=== PATIENT | female | born 1965 | race Caucasian/White ===

== ENCOUNTER 2024-01-14 08:59 | Outpatient (CLI) | payer OTHER, SELFPAY | END 2024-01-14 09:00 | disposition home or self-care (01) | PROVIDERS: PCP Internal Medicine; Visit Provider Internal Medicine | DX: E11.9 Type 2 diabetes mellitus without complications (principal); I10 Essential (primary) hypertension; Z13.220 Encounter for screening for lipoid disorders | CPT/HCPCS: 80053; 80061 ==

== ENCOUNTER 2024-01-21 12:50 | Outpatient (CLI) | payer OTHER, SELFPAY ==
[2024-01-21] MEDS: PERFLUTREN LIPID MICROSPHERES 2 ML VIAL IV (13:57)
[2024-01-21 13:58] VITALS: BP 154/82; PULSE 92; RESP 18
--- NOTE | 2024-01-21 14:43 | W.PM.STED ---
Stress Test Note Date Date Seen: 01/21/24 Date of test: 01/21/24 Providers Primary care provider: Kilo Provider Generic Stress test physician: Baldemar Vidales Stress Test Note Stress test ordered: Stress Echo Indication for test: Shortness of breath Stress test medicine: Definity Results discussion: Patient is a very nice 58-year-old female presents here for the above test after discussion the procedure, the risks benefits and side effects with it, informed consent is obtained from the patient, cardiac stress test medical history form is reviewed. Pretest EKG shows normal sinus rhythm, with a ventricular rate of 62, blood pressure 142/82. No acute ST wave changes are noted. Standard Ajay protocol is employed over a time course of 10 minutes, she achieved a metabolic equivalent of 11.5 Mets with a maximum rate of 166 was 119% of the maximum. Mild ST wave depression is noted laterally inferiorly, with 2.6 mm inferiorly, and he was 1.5 mm from V4 to V6. Is present subjectively she had no symptoms has chest pain shortness of breath there is some mild her pressures with leg fatigue, and good exercise tolerance is noted Impression: Positive electrographic changes above, negative subjective Follow up suggested: Await echo imaging, clinical correlation with this will be needed, patient exercised to a high level, this may be a false positive given the above findings, the again need correlation the echo portion. She left this test facility in good condition
== END 2024-01-21 14:03 | disposition home or self-care (01) ==
LOC: STRESS 12:53
PROVIDERS: Visit Provider Internal Medicine
DX: R06.02 Shortness of breath (principal)
CPT/HCPCS: 93016; 93325; 93351; Q9957

== ENCOUNTER 2025-01-26 08:06 | Outpatient (CLI) | payer OTHER, BC, SELFPAY | END 2025-01-26 08:07 | disposition home or self-care (01) | LOC: NFLDREF 01-28 14:22 | PROVIDERS: PCP Internal Medicine; Referring Provider Internal Medicine; Visit Provider Internal Medicine | DX: E11.9 Type 2 diabetes mellitus without complications (principal); I10 Essential (primary) hypertension | CPT/HCPCS: 80053; 80061; 82043; 82570 ==

== ENCOUNTER 2025-01-29 20:20 | Emergency (ER) | payer OTHER, BC, SELFPAY ==
[2025-01-29 20:22] VITALS: BP 168/65; PULSE 64; RESP 18; TEMP 36.2; O2SAT 99; BMI 26.3
--- OUTSIDE RECORDS SUMMARY | 2025-01-29 20:22 | XMS_ITS | Clinical Summary ---
Author Organization [facility] Address [address] [place] [id number] Care Team Providers Care Service Station Attendant Name Role Phone No Ref-Primary, Physician Primary Care Provider Allergies No known active allergies Medications ACYCLOVIR PO Take 400 mg by mouth 2 times daily Active vitamin D (ERGOCALCIFEROL ) 46396 UNIT capsule Take 50,000 Units by mouth Active estradiol (VIVELLE-DOT) 0.05 MG/24HR BIW patch Place 1 patch onto the skin twice a week Active FLUOXETINE HCL PO Take 20 mg by mouth At Bedtime Active hydrochlorothia zide (MICROZIDE) 12.5 MG capsule Take 25 mg by mouth every morning Active LISINOPRIL PO Take 10 mg by mouth daily Active METFORMIN HCL PO Take 500 mg by mouth daily (with dinner) Active Solifenacin Succinate (VESICARE PO) Take 5 mg by mouth daily Active Social History Tobacco Use Types Packs/Day Years Used Date Smoking Tobacco: Never Smokeless Tobacco: Never Alcohol Use Standard Drinks/Week Comments No 0 (1 standard drink = 0.6 oz pur e alcohol) Comments No Sex and Gender Information Value Date Recorded Sex Assigned at Not on file 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 Gender Identity Not on file Sexual Orientation Not on file Last Filed Vital Signs Vital Sign Reading Time Taken Comments Blood Pressure 125/85 10/11/2017 9:05 AM CDT Pulse - - Temperature 36.3 C (97.3 F) 10/11/2017 6:49 AM CDT Respiratory Rate 17 10/11/2017 9:05 AM CDT Oxygen Saturation 98% 10/11/2017 9:05 AM CDT Inhaled Oxygen Concentration - - Weight 70.3 kg (155 lb) 10/11/2017 6:49 AM CDT Height 153.7 cm (5' 0.5) 10/11/2017 6:49 AM CDT Body Mass Index 29.77 10/11/2017 6:49 AM CDT Plan of Treatment Not on file Insurance [employer] Care Teams Service Station Attendant Relationship Specialty Start Date End Date No Ref-Primary, Physician PCP - General 09/30/17
--- OUTSIDE RECORDS SUMMARY | 2025-01-29 20:22 | XMS_ITS | Clinical Summary ---
Author Organization [facility] Address [address] [place] [address] Care Team Providers Care Oven Heater Name Role Phone Genet Jarrell PA-C Primary Care Provide r Ruma Mccord MD Unavailable [phone] Allergies No known active allergies Medications lisinopril (PRINIVIL;ZESTRI L) 10 mg Oral Tab 1 Tab Once Daily. 03/09/2014 Active FLUoxetine (PROZAC) 20 mg Oral Cap 20 mg Once Daily. 05/11/2014 Active VITAMIN D2 50,000 unit Oral Cap 1 Cap as directed. Twice weekly 05/15/2014 Active solifenacin (VESICARE) 5 mg oral tablet Take 5 mg by mouth once daily. Active Active Problems Problem Noted Date Diagnosed Date LAN (obstructive sleep apnea) 06/16/2014 Overview (06/18/2014): AHI 16.2/RDI 18.2/REM AHI 15.6, desats 89% Benign essential hypertension Type 2 diabetes mellitus Obesity (BMI 30.0-34.9) Family History Medical History Relation Comments Sleep Apnea Neg Family Hx Social History Tobacco Use Types Packs/Day Years Used Date Smoking Tobacco: Never Smokeless Tobacco: Never Alcohol Use Standard Drinks/Week Comments No 0 (1 standard drink = 0.6 oz pur e alcohol) Comments No Sex and Gender Information Value Date Recorded Sex Assigned at Not on file Legal 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 Gender Identity Not on file Sexual Orientation Not on file 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 Not on file Not on file Not on file Last Filed Vital Signs Vital Sign Reading Time Taken Comments Blood Pressure 123/77 05/22/2017 8:40 AM CONTENT CREATION MANAGER Pulse 72 05/22/2017 8:40 AM CONTENT CREATION MANAGER Temperature 36.6 C (97.8 F) 05/22/2017 6:51 AM CONTENT CREATION MANAGER Respiratory Rate 18 05/22/2017 8:40 AM CONTENT CREATION MANAGER Oxygen Saturation 96% 05/22/2017 8:40 AM CONTENT CREATION MANAGER Inhaled Oxygen Concentration - - Weight 72.6 kg (160 lb) 05/22/2017 6:50 AM CONTENT CREATION MANAGER Height 154.9 cm (5' 1) 05/22/2017 6:50 AM CONTENT CREATION MANAGER Body Mass Index 30.23 05/22/2017 6:50 AM CONTENT CREATION MANAGER Plan of Treatment Health Maintenance Due Date Last Done Comments Creatinine 1966 Eye Exam 1966 Hepatitis C Screening 1966 HgbA1C 1966 Lipid Screening 1966 Mammogram Screening 1966 Microalbumin Q12 Month 1966 Pap Smear 1966 Anxiety Screening (DEUCE-2) 1967 Depression Assessment (PHQ-2) 1967 Pneumococcal 50+ Years (2 of 2 - PCV) 05/05/2011 05/05/2010, 03/16/2005 Zoster Vaccine (1 of 2) 02/06/2016 Yearly Review of HCD 04/30/2018 04/30/2017 Adult Tetanus Booster 04/08/2022 04/08/2012 , 08/31/2003 COVID-19 Vaccine ( - 2023-2 5 season) 2024 Influenza Vaccine (#1) 2025 Colonoscopy 05/22/2027 05/22/2017 RSV Vaccines (1 - 1-dose 75+ series) 2041 Meningococcal B Vaccine Aged Out No l onger eligible based on patient's age to complete this topic Procedures Procedure Name Priority Date/Time Associated Diagnosis Comments ASC COLONOSOPY Routine 05/22/2017 7:34 AM CONTENT CREATION MANAGER from Last 3 Months or Most Recently Relevant to Health Maintenance Results * ASC Colonoscopy (05/22/2017 7:34 AM CONTENT CREATION MANAGER) 05/22/2017 7:34 AM CONTENT CREATION MANAGER Narrative TEST - 05/22/2017 8:13 AM CONTENT CREATION MANAGER Patient Name: Krystina Harris Procedure Date: 05/22/2017 7:34 AM Attending MD: KORY DEL CID MD Procedure: Colonoscopy Indications: Screening for colorectal malignant neoplasm, Screening in patient at increased risk: Family history of 1st-degree relative with colorectal cancer Patient Profile: Last Colonoscopy: 5 years ago. Providers: KORY DEL CID MD (Doctor) [address] [facility] [address] [place] [address] Referring Provider Genet Jarrell (Referring MD) Requesting Provider: Medicines: Midazolam 2 mg IV, Fentanyl 100 micrograms IV Complications: No immediate complications. Procedure: Pre-Anesthesia Assessment: - This assessment was completed at 07:47 AM, prior to the administration of sedation. - Mental Status Examination: alert and oriented. Airway Examination: normal oropharyngeal airway and neck mobility. Respiratory Examination: clear to auscultation. CV Examination: normal. Abdominal Examination: bowel sounds present, abdomen soft and non-tender, no masses or organomegaly noted. - ASA Grade Assessment: II - A patient with mild systemic disease. - After reviewing the risks and benefits, the patient was deemed in satisfactory condition to undergo the procedure. - The anesthesia plan was to use moderate sedation/analgesia (conscious sedation). - Immediately prior to administration of medications, the patient was re-assessed for adequacy to receive sedatives. - Sedation was administered by an endoscopy nurse. The sedation level attained was moderate. - The heart rate, respiratory rate, oxygen saturations, blood pressure, adequacy of pulmonary ventilation, and response to care were monitored throughout the procedure. - The physical status of the patient was re-assessed after the procedure. - in an ambulatory setting. After I obtained informed consent, the scope was passed under direct vision. Throughout the procedure, the patient's blood pressure, pulse, and oxygen saturations were monitored continuously. The Colonoscope was introduced through the anus and advanced to the terminal ileum. The colonoscopy was performed without difficulty. The patient tolerated the procedure well. The quality of the bowel preparation was good. Findings: The perianal and digital rectal examinations were normal. The colon (entire examined portion) was mildly redundant. The terminal ileum appeared normal. The entire examined colon appeared normal. Impression: - Redundant colon. - The examined portion of the ileum was normal. - The entire examined colon is normal. - No specimens collected. Recommendation: - Repeat colonoscopy in 5 years for surveillance. Kory DEL CID MD 05/22/2017 8:13:34 AM Number of Addenda: 0 Note Initiated On: 05/22/2017 7:34 AM Scope Withdrawal Time 0 hours 5 minutes 35 seconds Total Procedure Duration Time 0 hours 9 minutes 11 seconds Procedure Note Kory Del Cid MD - 05/22/2017 Patient Name: Krystina Harris Procedure Date: 05/22/2017 7:34 AM Attending MD: KORY DEL CID MD Procedure: Colonoscopy Indications: Screening for colorectal malignant neoplasm,Screening in patient at increased risk: Family history of 1st-degree relative with colorectal cancer Patient Profile: Last Colonoscopy: 5 years ago. Providers: KORY DEL CID MD (Doctor) [address] [place] [address] [address] [place] [address] Referring Provider Genet Jarrell (Referring MD) Requesting Provider: Medicines: Midazolam 2 mg IV, Fentanyl 100 micrograms IV Complications: No immediate complications. Procedure: Pre-Anesthesia Assessment: - This assessment was completed at 07:47 AM, prior to the administration of sedation. - Mental Status Examination: alert and oriented.Airway Examination: normal oropharyngeal airway and neck mobility. Respiratory Examination: clear to auscultation. CV Examination: normal. Abdominal Examination: bowel sounds present, abdomen soft and non-tender, no masses or organomegaly noted. - ASA Grade Assessment: II - A patient with mild systemic disease. - After reviewing the risks and benefits, the patient was deemed in satisfactory condition to undergo the procedure. - The anesthesia plan was to use moderate sedation/analgesia (conscious sedation). - Immediately prior to administration of medications, the patient was re-assessed for adequacy to receive sedatives. - Sedation was administered by an endoscopy nurse.The sedation level attained was moderate. - The heart rate, respiratory rate, oxygensaturations, blood pressure, adequacy of pulmonary ventilation,and response to care were monitored throughout theprocedure. - The physical status of the patient was re-assessed after the procedure. - in an ambulatory setting. After I obtained informed consent, the scope waspassed under direct vision. Throughout the procedure, the patient's blood pressure, pulse, and oxygensaturations were monitored continuously. The Colonoscope was introduced through the anus and advanced to theterminal ileum. The colonoscopy was performed withoutdifficulty. The patient tolerated the procedure well. The qualityof the bowel preparation was good. Findings: The perianal and digital rectal examinations were normal. The colon (entire examined portion) was mildly redundant. The terminal ileum appeared normal. The entire examined colon appeared normal. Impression: - Redundant colon. - The examined portion of the ileum was normal. - The entire examined colon is normal. - No specimens collected. Recommendation: - Repeat colonoscopy in 5 years for surveillance. Kory DEL CID MD 05/22/2017 8:13:34 AM Number of Addenda: 0 Note Initiated On: 05/22/2017 7:34 AM Scope Withdrawal Time 0 hours 5 minutes 35 seconds Total Procedure Duration Time 0 hours 9 minutes 11 seconds Kory Del Cid MD PROCEDURE ORDERABLE Final Result TEST from Last 3 Months or Most Recently Relevant to Health Maintenance Insurance [id number] Free & Clear [employer] [facility] Care Teams Oven Heater Relationship Specialty Start Date End Date Genet Jarrell PA-C PCP - General 06/18/14 Ruma Mccord MD Consulting Physician Sleep Medicine 06/18/14
--- OUTSIDE RECORDS SUMMARY | 2025-01-29 20:22 | XMS_ITS | Patient Health Record ---
Author Organization [facility] Address [address] [place] [address] Care Team Providers Care Laboratory Equipment Installer Name Role Phone ALEXIS CALZADA Unavailable [phone] Reason For Referral No Information Medications Medication SIG (Take, Route, Fr equency, Duration) Notes Start Date End Date Status Lisinopril Active Estrace Active FLUoxetine HCl Activ e ZyrTEC Allergy Activ e Problems Problem Type SNOMED Code ICD Code Onset Dates Problem Status W/U Status Risk Notes Problem Epistaxis (243930920) Epistaxis (784.7) Active confirmed Plan Of Treatment No Information Insurance Providers Payer Name Payer Address Payer Phone Subscriber Number Group Number Insured Name Patient Relationship to Insured Coverage Start Date Coverage End Date [facility] [facility] [address] [address] [place], [place] [phone] [id number] Krystina Harris Self - patient is the insured Medical (General) History Medical History History ICD Code hypertension diabetes mellitus-diet controlled
--- OUTSIDE RECORDS SUMMARY | 2025-01-29 20:22 | XMS_ITS | Clinical Summary ---
Author Organization [facility] Address [address] [place] [id number] Care Team Providers Care Drug Abuse Technician Name Role Phone Genet Jarrell Primary Care Provider Allergies Active Allergy Reactions Criticality Noted Date Comments Cat Dander Itching,Runny Nose 01/02/1996 Dog Dander Other - Describe In Comment Field Mold Itching,Runny Nose 12/02/1995 Medications acyclovir (ZOVIRAX) 400 mg tabletIndication s:Recurrent cold sores TAKE 2 TABLETS TWICE A DAY FOR 5 DAYS FOR OUTBREAKS 40 Tablet 2 04/02/20 24 Active FLUoxetine (PROZAC) 40 mg capsuleIndicatio ns:Depression with anxiety Take 1 Capsule (40 mg) by mouth once daily. 90 Capsule 1 07/29/19 25 Active hydroCHLOROthiaz pradeep 25 mg tabletIndication s:Essential hypertension Take 1 Tablet (25 mg) by mouth once daily. 90 Tablet 1 07/29/19 25 Active simvastatin (ZOCOR) 10 mg tabletIndication s:Hyperlipidemia with target LDL less than 100 Take 1 Tablet (10 mg) by mouth at bedtime. 90 Tablet 1 07/29/19 25 Active lisinopriL (PRINIVIL; ZESTRIL) 10 mg tabletIndication s:Essential hypertension TAKE 1 TABLET ONCE DAILY 90 Tablet 12/24/19 25 Active metFORMIN (GLUCOPHAGE XR) 500 mg Extended-Release tabletIndication s:Diabetes mellitus without complication (HC) TAKE 4 TABLETS ONCE DAILY WITH THE EVENING MEAL 360 Tablet 01/02/20 25 Active metFORMIN (GLUCOPHAGE XR) 500 mg Extended-Release tabletIndication s:Diabetes mellitus without complication (HC) TAKE 4 TABLETS ONCE DAILY WITH THE EVENING MEAL 360 Tablet 1 07/29/19 25 025 Discontinued Active Problems Problem Noted Date Diagnosed Date Type 2 diabetes mellitus wit h stage 2 chronic kidney disease, with long-term current use of insulin 07/23/2024 CKD (chronic kidney disease) stage 2, GFR 60-89 ml/min 06/11/2023 Acquired absence of both cervix and uterus 11/08 Hyperopia of both eyes with astigmatism and pres byopia 01/06/2021 Hyperlipidemia LDL goal < 100 05/11/2014 Health maintenance alteration 05/11/2014 Overview (05/11/2014): Physical: 04/2012 Papsmear: Hysterectomy Fasting labs: Last Lipids: Chol: 122 04/08/2012 T 04/08/2012 HDL: 44 04/08/2012 LDL: 50 04/08/2012 LDL DIRECT: 92 09/29/2013 GLUCOSE (mg/dL) Date Value 04/08/2012 120* Mammogram: 04/2013 Colonoscopy: 2012 due to family history. NL Menses: NA DEXA: NA Tdap: 04/08/2012 Influenza: due Pneumovax: 05/05/2010 Zostavax: na Diet/Exercise: no Seatbelt Usage: yes Dentist: every 6 months Eye: once a year Smoking status: no No family history of prostate CA, breast CA, ovarian CA, cervical CA. Maternal grandmother with a hx of colon cancer. FHx: colon cancer 04/08/2012 Breast cancer screening 02/28/2009 Type II or unspecified type diabetes mellitus without mention of complication, not stated as uncontrolled 07/26/2006 Overview (04/03/2011): hx of gestational diabetes ,now diet controled diabetes 04/03/2011 6.4* 07/05/2006 7.0* Allergic rhinitis, cause unspecified 07/26/2006 Unspecified essential hypertension 07/26/2006 Depressive disorder, not elsewhere classified Resolved Problems Problem Noted Date Diagnosed Date Resolved Date Screening for malignant neop lasm of the cervix 05/05/2010 11/08/2022 Overview (05/05/2010): Patient no longer has a cervix ( S/P hysterectomy) no Pap Smears Hyperkalemia 03/11/2009 05/11/2014 Lipid screening 01/12/2008 05/11/2014 Uterine prolapse without men tion of vaginal wall prolapse 02/02/2007 05/05/2010 Overview (02/02/2007): 2004 Encounters Date Type Department Care Team Description 12/29/2024 Refill [facility] [address], [place] [address] Genet Jarrell PA Refill Request (Metformin) 12/20/2024 Refill [facility] [address], [place] [address] Genet Jarrell PA Refill Request (Lisinopril) from Last 3 Months Immunizations Immunization Administration Dates Next Due COVID-19 vaccine ([employer] J) PF, MDV 10/11/2020 Hepatitis B (Adult) 07/29/2024,10/23/2021,2020 Influenza Virus, Unspecified 05/13/2020 Influenza, IIV3 (Age >=3 years) 04/08/20 12,04/03/2011,05/05/2010,2005 Influenza, IIV4 02/25/2019,03/12/2017 Pneumococcal Poly,23-Valent (Pneumovax) 06/13/2020,05/05/2010,03/16/2005 Td (Age >=7 Years) 08/31/2003 Tdap 09/21/2022,04/08/2012 Zoster (Shingrix-RZV, recombinant) 01/19/2019, Family History Medical History Relation Name Comments Other Brother 2 lung with brain mets Stroke Brother 7 Stroke 42 Diabetes Father Stroke Father age 38, br ain aneurysm Heart Disease Maternal Grandfather Cancer-colon Maternal Grandmother diabete s late in life Cancer Mother lung Diabetes Mother Good Health Mother Cancer-breast No Family History Relation Name Status Comments Brother 1 Alive Brother 2 Alive Brother 3 Alive 1/2 Brother 4 Alive 1/2 Brother 5 Alive 1/2 Brother 6 (Age 20's) suicide Brother 7 Daughter 1 Diana Alive 17 Daughter 2 Yony Alive 13 Father (Age 38) stroke Maternal Grandfather Maternal Grandmother Mother Sister 1 Alive Sister 2 Alive 1/2 Sister 3 Alive 1/2 Son 1 Brian Alive 8 Son 2 Gen Alive 21 Social History Tobacco Use Types Packs/Day Years Used Date Smoking Tobacco: Never Smokeless Tobacco: Never Tobacco Cessation:Counseling Given: Yes Alcohol Use Standard Drinks/Week Comments No 0 (1 standard drink = 0.6 oz pur e alcohol) PHQ-2 Answer Date Recorded PHQ-2 TOTAL SCORE 0 07/29/2024 Financial Resource Strain Answer Date R ecorded Difficulty of Paying Living Expenses Not on file 06/03/2021 Difficulty of Paying Living Expenses Not on file 06/03/2021 Comments No Sex and Gender Information Value Date Recorded Sex Assigned at Female 08/08/2020 5:03 PM ELECTRONICS RESEARCH ENGINEER Legal Sex Female 6:43 AM ELECTRONICS RESEARCH ENGINEER Gender Identity Female 08/08/2020 5:03 PM ELECTRONICS RESEARCH ENGINEER Sexual Orientation Straight 08/08/2020 5: 03 PM ELECTRONICS RESEARCH ENGINEER 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 Not on file Not on file Obstetrics History Para Term AB IAB SAB Ectopic Multiple Livin g Live Births 4 4 4 Date Outcome GA Total Labor Labor/2nd/3rd Weight Sex Type Anes PTL Jackelyn A1 A5 Name Clin Para Para Para Para Last Filed Vital Signs Vital Sign Reading Time Taken Comments Blood Pressure 128/74 07/29/2024 11:02 AM ELECTRONICS RESEARCH ENGINEER Pulse 76 07/29/2024 11:02 AM ELECTRONICS RESEARCH ENGINEER Temperature 36.6 C (97.8 F) 06/11/2023 12:44 PM ELECTRONICS RESEARCH ENGINEER Respiratory Rate 18 06/11/2023 12:44 PM ELECTRONICS RESEARCH ENGINEER Oxygen Saturation 100% 06/11/2023 12:44 PM ELECTRONICS RESEARCH ENGINEER Inhaled Oxygen Concentration - - Weight 59.4 kg (131 lb) 07/29/2024 11:02 AM ELECTRONICS RESEARCH ENGINEER Height 153.7 cm (5' 0.5) 07/29/2024 11:02 AM CS T Body Mass Index 25.16 07/29/2024 11:02 AM ELECTRONICS RESEARCH ENGINEER Plan of Treatment Health Maintenance Due Date Last Done Comments Pneumococcal series for age 50+ (2 of 2 - PCV) 06/13/2021 06/13/2020, 05/05/2010, 03/16/2005 COVID-19 vaccine series ( season) 2024 10/11/2020 Influenza Vaccine (#1) 2025 , 02/25/2019, 03/12/2017, Additional history exists BMI (ht and wt on same day) for age 18+ 07/29/2025 07/29/2024, 06/11/2023, 10/23/2021, Additional history exists Depression screening for age 12+ 09/04/2025 09/04/2024, 07/29/2024, 03/07/2023, Additional history exists Mammogram for age 45-75 09/04/2025 09/05/19, 11/07/2021, 11/18/2019, Additional history exists Colonoscopy through age 75 10/10/202710/09, 10/09/2022, 10/09/2022, Additional history exists Lipids for age 45-75 07/29/2029 07/29/2024, 04/15/2023, 10/23/2021, Additional history exists Tetanus booster 09/21/2032 09/21/2022, 11/2011, 08/31/2003 Zoster (shingles) series for age 50+ Completed 01/19/2019, 10/13/2018 HIV for age 15-65 Completed 04/15/2023 Hepatitis C screening for ag e 18-79 Completed 04/15/2023 Hepatitis B series for 19+ Completed 07/29, 10/23/2021, 06/13/2020 Procedures Procedure Name Priority Date/Time Associated Diagnosis Comments XR MAMMO ROMAN BILAT SCREEN Routine 09/04/2024 10:08 AM CDT Breast cancer screening LIPID PANEL W REFLEX MEASURED LDL Routine 07/29/2024 11:31 AM ELECTRONICS RESEARCH ENGINEER Hyperlipidemia with target LDL less than 100 ANTI HIV 1/2 Routine 04/15/2023 10:06 AM ELECTRONICS RESEARCH ENGINEER Encounter for screening for HIV ANTI HCV Routine 04/15/2023 10:06 AM ELECTRONICS RESEARCH ENGINEER Need for hepatitis C screening test COLONOSCOPY SCREENING Routine 10/09/2022 2:23 PM CDT Screening for colon cancer from Last 3 Months or Most Recently Relevant to Health Maintenance Results * XR MAMMO ROMAN BILAT SCREEN (09/04/2024 10:08 AM CDT) Anatomical Region Laterality Modality BREASTS, Breast Left, Breast Right Bilateral Mammography Impressions 09/04/2024 2:36 PM CDT There is no radiographic evidence for malignancy. Recommend annual mammograms. MAMMOGRAM ASSESSMENT: ACR 1 Negative PATIENTS: You will also receive a letter with your examination results in an easy to read format. If you have questions about your results, please contact your referring provider. Narrative 09/04/2024 2:36 PM CDT For Patients: As a result of the Cures Act, medical imaging exams and procedure reports are released immediately into your electronic medical record. You may view this report before your referring provider. If you have questions, please contact your health care provider. XR MAMMO ROMAN BILAT SCREEN [[id number]] CLINICAL HISTORY: This is an asymptomatic 59 y.o. patient. INDICATION FOR EXAM: Mammogram Screening. TECHNIQUE: CC and MLO views were obtained. This study was evaluated with the assistance of Computer-Aided Detection. Breast Tomosynthesis was used in interpretation. COMPARISON FILM: Yes 11/07/21 [facility] 11/18/19 [facility] FINDINGS: The breasts are heterogeneously dense, which may obscure small masses. There are no dominant masses, suspicious micro calcifications or areas of architectural distortion. Genet ENGLISH MAMMO Final R esult * (ABNORMAL) LIPID PANEL W REFLEX MEASURED LDL (07/29/2024 11:31 AM ELECTRONICS RESEARCH ENGINEER) CHOLESTEROL, TOTAL 133 <200 mg/dL [facility] HDL CHOLESTEROL 51 > OR = 50 mg/dL [facility] TRIGLYCERIDES 230(H) <150 mg/dL [facility] Comment: If a non-fasting specimen was collected, consider repeat triglyceride testing on a fasting specimen if clinically indicated. Sherie et al. J. of Clin. Lipidol. 2015;9:129-169. LDL-CHOLESTEROL 53 mg/dL (calc) [facility] Comment: Reference range: <100 Desirable range <100 mg/dL for primary prevention; <70 mg/dL for patients with CHD or diabetic patients with > or = 2 CHD risk factors. LDL-C is now calculated using the Ming-Prieto calculation, which is a validated novel method providing better accuracy than the Friedewald equation in the estimation of LDL-C. Ming SS et al. NELY. 2013;310(19): 3886-6644 (http://education.BoatSetter/faq/UKZ413) CHOL/HDLC RATIO 2.6 <5.0 (calc) [facility] NON HDL CHOLESTEROL 82 <130 mg/dL (calc) [facility] Comment: For patients with diabetes plus 1 major ASCVD risk factor, treating to a non-HDL-C goal of <100 mg/dL (LDL-C of <70 mg/dL) is considered a therapeutic option. Blood BLOOD SPECIMEN / Unknown 07/29/2024 11:31 AM ELECTRONICS RESEARCH ENGINEER 07/29/2024 11:31 AM ELECTRONICS RESEARCH ENGINEER Narrative Related Content Database (RCDb) DIAGNOSTICS - 07/30/2024 4:24 AM ELECTRONICS RESEARCH ENGINEER FASTING:YES FASTING: YES September Maricel ENGLISH CHEMISTRY Final R esult [facility] [address] [place] [address], [facility] [address] [place] [address] * ANTI HCV (04/15/2023 10:06 AM ELECTRONICS RESEARCH ENGINEER) Pathologist [facility] HEPATITIS C ANTIBODY Non-Reacti ve Non-React sabina 04/15/2023 5:34 PM ELECTRONICS RESEARCH ENGINEER [facility] Comment:Please note, per www .CDC.gov: If a patient is known to be at high risk of HCV infection, or is symptomatic, and the physician's suspicion of HCV infection is high, HCV RNA testing is often employed and is of diagnostic value, even after an initial negative anti-HCV test result. Blood BLOOD SPECIMEN / Unknown Venipuncture / Unknown 04/15/2023 10:06 AM ELECTRONICS RESEARCH ENGINEER 04/15/2023 10:07 AM ELECTRONICS RESEARCH ENGINEER [facility] Maricel ENGLISH SEND OUTS Final R esult Performing Organization Address [facility] Co de Phone Number [facility] [address] [place] [address], [place] * ANTI HIV 1/2 (04/15/2023 10:06 AM ELECTRONICS RESEARCH ENGINEER) HIV-1/HIV-2 SCREEN Non-Reacti ve Non-Reacti ve 04/15/2023 5:29 PM ELECTRONICS RESEARCH ENGINEER [facility] Comment:HIV-1 p24 and HIV-1/ HIV-2 Ab Not Detected. Blood BLOOD SPECIMEN / Unknown Venipuncture / Unknown 04/15/2023 10:06 AM ELECTRONICS RESEARCH ENGINEER 04/15/2023 10:07 AM ELECTRONICS RESEARCH ENGINEER Genet ENGLISH SEND OUTS Final R esult Performing Organization Address [facility] Co de Phone Number [facility] [address] [place] [address], [place] * COLONOSCOPY (10/09/2022 2:18 PM CDT) 10/09/2022 2:18 PM CDT Narrative Transcriptions Ming Chang MD - 10/09/2022 3:24 PM CDT Patient Name: Krystina Rawls Procedure Date: 10/09/2022 Gender: Female Date of : 1965 Admit Type: Outpatient Procedure: Colonoscopy Proceduralist: Ming Chang MD , Kathrin Martinez (Nurse), Danielle Jauregui RN (Nurse) Referring MD: Genet Jarrell Indications/Pre-Op Diagnosis: Screening in patient at increased risk:Family history of 1st-degree relative withcolorectal cancer Medications: Fentanyl 100 micrograms IV, Midazolam 3 mgIV, The level of sedation administered wasmoderate Procedure Description: The patient had risks, benefits and alternatives explained to andgave informed consent. The patient had a stable cardiopulmonary status and judged an adequate candidate for conscious sedation. The endoscope [id number]-[id number] was passed through the anus andadvanced to the cecum, identified by appendiceal orifice and ileocecal valve.The colonoscopy was performed without difficulty. The patient toleratedthe procedure well. The quality of the bowel preparation was good. The ileocecal valve, appendiceal orifice, and rectum were photographed. Complications: No immediate complications. Estimated Blood Loss & Specimen: Estimated blood loss: none. Specimen collected - None Findings: The perianal and digital rectal examinations were normal. The entire examined colon appeared normal. Impressions/Post-Op Diagnosis: - The entire examined colon is normal. - No specimens collected. Recommendation: - Patient has a contact number available for emergencies. The signsand symptoms of potential delayed complications were discussed with the patient. Return to normal activities tomorrow. Written discharge instructions were provided to the patient. - Resume previous diet. - Continue present medications. - Repeat colonoscopy in 5 years for screening purposes. Moderate Sedation: A time out was performed before the procedure. Moderate (conscious) sedation was administered by the endoscopy nurse and supervised bythe endoscopist. The following parameters were monitored: oxygensaturation, heart rate, blood pressure, EKG, CO2, respiratory rate, adequacy of pulmonary ventilation and reponse to care. Please refer to the patient's medical record flowsheets and nursing notes for moderate sedation details. Total physician intraservice time was 15 minutes. Ming Chang MD 10/09/2022 3:24:38 PM This report has been signed electronically. Note Initiated On: 10/09/2022 2:18 PM Procedure Code(s): --- Professional --- 49086, Colonoscopy, flexible; diagnostic, including collection of specimen(s) bybrushing or washing, when performed (separateprocedure) Diagnosis Code(s): --- Professional --- Z80.0, Family history of malignant neoplasmof digestive organs CPT copyright 2021 [employer]. All rights reserved. The codes documented in this report are preliminary and upon communications billing analyst reviewmay be revised to meet current compliance requirements. Scope In: 3:04:24 PM Scope Withdrawal Time 0 hours 8 minutes 41 seconds Scope Out: 3:16:45 PM Ming Chang MD PROCEDURE ORD Final Res ult from Last 3 Months or Most Recently Relevant to Health Maintenance Insurance [place] [id number] [employer] [facility] ONLY [phone] [place] [id number] [facility] Care Teams Drug Abuse Technician Relationship Specialty Start Date End Date Genet Jarrell PA [address] [place] [address] PCP - General Family Practice 07/17/13
--- NOTE | 2025-01-29 20:26 | ED.GENADULT ---
HPI - General Adult General Date Seen: 01/29/25 Chief complaint: Fall/Minor Trauma Stated complaint: fell, injured hand, hit head Time Seen by Provider: 01/29/25 20:22 History of Present Illness HPI narrative: 59-year-old female with a history of diabetes, hypertension, sleep apnea, depression, and neck strain, presenting to the ER today for evaluation of injuries after a fall. She presents to the ER tonight by private car with her daughter. She was walking this evening when she tripped on a rock and fell forward. She is here primarily because she injured her left hand the fall. She is not exactly sure how she fell on her hand. She suffered a small abrasion to the ulnar border of the base of her 5th finger. She does not think that is a serious injury and it barely was bleeding. She has no numbness or tingling in any of her fingers or thumb. She is having lot of pain and swelling in the body of your hand including and especially over the 3rd and 4th metacarpals. She is not having any pain in the wrist, forearm, elbow, upper arm, or shoulder. She has a mild abrasion to the anterior left knee the would not have even come to the ER for that injury. She also did scrape her face on the ground and has a small abrasion to her upper lip. She has no injury to her teeth. No intraoral laceration. No tongue laceration. She does not have a headache. She did not get knocked out. She has no blurry vision, nausea, confusion. She is not anticoagulated. Tetanus is up-to-date, 2 years ago. Related Data Home Medications ?Medication ?Instructions ?Recorded ?Confirmed acyclovir 400 mg tablet 400 mg PO QDAY PRN 01/14/24 01/28/25 Previous Rx's ?Medication ?Instructions ?Recorded tizanidine 4 mg tablet 4 mg PO QHS PRN muscle spasticity 10/14/24 #14 tabs fluoxetine 40 mg capsule 40 mg PO QDAY #90 caps 01/28/25 hydrochlorothiazide 25 mg tablet 25 mg PO QAM #90 tabs 01/28/25 lisinopril 10 mg tablet 10 mg PO QDAY #90 tabs 01/28/25 metformin 500 mg tablet,extended 2,000 mg (4 x 500 mg) PO QPM #360 01/28/25 release 24 hr tabs simvastatin 10 mg tablet 10 mg PO QPM #90 tabs 01/28/25 Allergies Allergy/AdvReac Type Severity Reaction Status Date / Time house dust Allergy Verified 01/28/25 12:52 cats Allergy Mild Uncoded 01/28/25 12:52 dogs Allergy Mild Uncoded 01/28/25 12:52 mold Allergy Mild Uncoded 01/28/25 12:52 PFSH PFSH Medical History (Updated 01/29/25 @ 22:34 by Arun Gavin MD) LAN (obstructive sleep apnea) ?G47.33 - Obstructive sleep apnea (adult) (pediatric) (ICD-10) Lightheadedness ?R42 - Dizziness and giddiness (ICD-10) Family History (Updated 01/14/24 @ 09:44 by Brandee Forbes ~ RN) Maternal Grandfather Myocardial infarction Father Stroke Diabetes Maternal Grandmother Colon cancer Brother Lung cancer Aunt Lung cancer Brain cancer Mother Diabetes Sister Depression Daughter Bipolar 1 disorder Anxiety Son Depression Anxiety Social History (Updated 01/28/25 @ 15:09 by Andressa Carrillo~[facility], [facility]) What is your current living situation?: I presently have a place to live Problems where you live: no known problems In the past 12 months, utilities in danger of being shut off: no In past 12 months, lack of transportation kept you from medical appts, meetings, work, or getting things needed for daily living: no In the past 12 mos, have been you worried that your food would run out before you had money to buy more?: never true In the past 12 mos, the food you bought just didn't last and you didn't have money to buy more?: never true Physical activity type: none Smoking Status: Never smoker Second hand tobacco smoke exposure: No How often do you have a drink containing alcohol: never AUDIT-C Alcohol total score: 0 Non-prescribed substance use: denies use Are you now , , , , never or living with a partner: Social isolation score (0-1 are the most socially isolated patients): 1 How often does anyone, including family, friends and others, physically hurt you: never How often does anyone, including family, friends and others, insult or talk down to you: never How often does anyone, including family, friends and others, threaten you with harm: never How often does anyone, including family, friends and others, scream or curse at you: never Exam Narrative: Exam Narrative: Constitutional: Appears well-developed and well-nourished. Alert. Conversant. Non toxic. HENT: Head: Atraumatic. No depressed skull fracture, Raccoon Eyes, Guerra's sign, or hemotympanum. Face normal. TMs normal Nose: Nose normal. Mouth/Throat: She has a superficial abrasion on the left upper lip but no suturable laceration. No dental injury. Gums are normal. Tongue normal. Oral mucosa is clear and moist. no trismus. Pharynx normal. Tonsils symmetric. No tonsillar enlargement, erythema, or exudate. Eyes: Conjunctivae normal. EOM normal. Pupils equal, round, and reactive to light. No scleral icterus. Neck: Normal range of motion. Neck supple. No tracheal deviation present. No posterior midline tenderness. Cardiovascular: Normal rate, regular rhythm. No gallop. No friction rub. No murmur heard. Normal distal cap refill left am in strong radial pulse. Pulmonary/Chest: Effort normal. No stridor. No respiratory distress. Musculoskeletal: RUE: Normal range of motion. No tenderness. No deformity LUE: Normal range of motion in her shoulder, wrist, forearm, elbow. Normal pronation/supination. She does have tenderness in the hand with swelling over the 3rd and 4th> 5th metacarpal on the dorsal side of her hand. No tenderness over the thenar eminence and she seems to be last tender the 2nd metacarpal. She has a small 1 cm abrasion on the ulnar aspect of the base the 5th finger. Range of motion in the 4th and 5th fingers limited by hand pain but there is no obvious deformity of the MCP, proximal phalanges PIP, middle phalanges, DI P, distal phalanges. All nail beds are intact. Intact ulnar and radial digital nerve sensory function in all 5 digits. Normal brisk distal cap refill. RLE: Normal range of motion. No edema. No tenderness. No deformity LLE: Normal range of motion. No edema. No tenderness. No deformity. Superficial abrasion on left anterolateral knee over the patella. No bony tenderness. Normal range of motion. Lymph: No cervical adenopathy. Neurological: Alert and oriented to person, place, and time. Normal strength. CN II-VII intact. No sensory deficit. GCS eye subscore is 4. GCS verbal subscore is 5. GCS motor subscore is 6. Normal coordination Skin: Skin is warm and dry. No rash noted. No pallor. Normal capillary refill. Psychiatric: Normal mood. Normal affect. Const: Vital Signs, click to edit/add: Vital Signs - 24 hr 01/29/25 20:22 Temperature 97.2 F L Pulse Rate [Left P ulse Oximeter] 64 Respiratory Rate 18 Blood Pressure [Ri ght Upper Arm] 168/65 H Pulse Oximetry 99 Oxygen Delivery Me thod Room Air Course Vital Signs Vital signs: Initial Vital Signs Temperature 97.2 F L 01/29/25 20:22 Temperature Source Temporal Artery Scan 01/29/25 20:22 Pulse Rate 64 01/29/25 20:22 Pulse Rhythm Regular 01/29/25 20:22 Respiratory Rate 18 01/29/25 20:22 Blood Pressure 168/65 H 01/29/25 20:22 Blood Pressure Mean 99 01/29/25 20:22 Blood Pressure Position Sitting 01/29/25 20:22 Pulse Oximetry 99 01/29/25 20:22 Oxygen Delivery Method Room Air 01/29/25 20:22 Vital Signs Temperature 97.2 F L 01/29/25 20:22 Pulse Rate 64 01/29/25 20:22 Respiratory Rate 18 01/29/25 20:22 Blood Pressure 168/65 H 01/29/25 20:22 Pulse Oximetry 99 01/29/25 20:22 Oxygen Delivery Method Room Air 01/29/25 20:22 Temperature 97.2 F L 01/29/25 20:22 Pulse Rate 64 01/29/25 20:22 Respiratory Rate 18 01/29/25 20:22 Blood Pressure 168/65 H 01/29/25 20:22 Pulse Oximetry 99 01/29/25 20:22 Oxygen Delivery Method Room Air 01/29/25 20:22 Medications Administered Medications: Discontinued Medications Generic Name Dose Route Start Last Admin Trade Name Freq PRN Reason Stop Dose Admin Hydrocodone Bitart/Acetaminophen 1 tab 01/29/25 20:39 01/29/25 20:53 Hydrocodone-Acetamin 5-325 Mg 1 Tab PO 01/29/25 20:40 1 tab ONCE ONE Administration Medical Decision Making MDM Narrative Medical decision making narrative: Very pleasant 59-year-old female presenting to the ER today with her daughter for evaluation of injuries after mechanical trip and fall that occurred this evening. She did suffer superficial abrasions to her left anterior knee and left lip but does not have any signs of serious injuries there. At this point no evidence for any intracranial injury or C-spine injury. No evidence for any torso injury. Her main site of injury she is having significant pain and swelling with limited range of motion her left hand. X-rays left hand are obtained and do show evidence for a minimally displaced fracture through the base of the 5th metacarpal. Incidentally she does have a superficial abrasion of the skin on the ulnar border of her hand at the distal end of the metacarpal. No evidence this is an open fracture. She is neurovascularly intact in her hand. Pain control improved after Elberton given here in the ER. She is placed into an ulnar gutter splint on the left hand after dressing her abrasion and placing gauze padding to prevent maceration in between the 4th and 5th digit Procedure: Splint placement Performed by Dr. Gavin. Indication: 5th metacarpal fracture Short-arm ulnar gutter splint Padding and careful forming to try to put the hand in position of comfort and function. Instymeds prescription for Elberton to use p.r.n. for pain. Opiate precautions reviewed. Discussed splint care, sling, elevation, rest, ice. Need for follow-up with Orthopedics to repeat evaluation for this fracture. Discussed the potential need for operative fixation. Precautions for return to the ER reviewed. Questions answered Imaging Data XR left hand: Attestation: I have reviewed the pertinent imaging results. My impression: Fifth metacarpal base fracture. Radiologist's impression: IMPRESSION: Minimally displaced 5th metacarpal base fracture. Discharge Plan Discharge Clinical Impression: Closed fracture of fifth metacarpal bone Patient Disposition: Home, Self-Care Condition: Stable Instructions: Hand Fracture (DC) Additional Instructions: As we discussed, keep the splint clean and dry and wear it all the time until you follow-up with orthopedics. If the splint gets wet, please come back to the ER or see the orthopedic clinic to have it changed. To treat your pain you can use Tylenol or ibuprofen as needed. You can use ice for 20 minutes every 3-4 hours. Use the prescription pain killer (Elberton) if needed for pain uncontrolled by other means. Be careful because Elberton does have side effects including dizziness, drowsiness, constipation. Elberton can be addictive. Please keep your arm elevated in the sling when you are up and around during the day and keep your arm elevated on a pillow while your sleeping. Please follow-up with the [facility] Orthopedic Department in 5-7 days for a recheck. To schedule an ER follow-up visit with the orthopedic clinic, call [phone]. Activity Level: No Restrictions Discharge Diet: Regular Prescriptions: No Action acyclovir 400 mg tablet 400 mg PO QDAY PRN Rx Instructions: as need for outbreaks tizanidine 4 mg tablet 4 mg PO QHS PRN (Reason: muscle spasticity) Qty: 14 0RF metformin 500 mg tablet extended release 24 hr 2,000 mg PO QPM Qty: 360 3RF lisinopril 10 mg tablet 10 mg PO QDAY Qty: 90 3RF simvastatin 10 mg tablet 10 mg PO QPM Qty: 90 3RF hydrochlorothiazide 25 mg tablet 25 mg PO QAM Qty: 90 3RF fluoxetine 40 mg capsule 40 mg PO QDAY Qty: 90 0RF Follow Up/Referrals: Celio Lundberg MD [Primary Care Provider, Internal Medicine] Stand Alone Forms: [employer] Info Instructions
--- NOTE | 2025-01-29 20:39 | CRLHL7_ITS ---
For Patients: As a result of the Century Cures Act, medical imaging exams and procedure reports are released immediately into your electronic medical record. You may view this report before your referring provider. If you have questions, please contact your health care provider. INDICATION: Trauma and pain. TECHNIQUE: Left hand 3 views. COMPARISON: None. FINDINGS: Obliquely oriented minimally displaced fracture of the 5th metacarpal base. No dislocation. Minimal scattered degenerative changes in the interphalangeal joints. Ulnar-sided soft tissue swelling. IMPRESSION: Minimally displaced 5th metacarpal base fracture. Dictated by Kaleb Manning MD @ 01/29/2025 9:41:56 PM (Electronically Signed)
[2025-01-29] MEDS: HYDROCODONE-ACETAMIN 5-325 MG 1 TAB PO (20:53)
== END 2025-01-29 22:40 | disposition home or self-care (01) ==
PROVIDERS: Emergency Provider Emergency Medicine; PCP Internal Medicine
DX: S62.317A Displaced fracture of base of fifth metacarpal bone, left hand, initial encounter for closed fracture (principal); W01.0XXA Fall on same level from slipping, tripping and stumbling without subsequent striking against object, initial encounter
CPT/HCPCS: 29125; 73130; 99282; 99283; A9270

== ENCOUNTER 2025-02-10 07:41 | Outpatient (CLI) | payer OTHER, BC, SELFPAY ==
--- NOTE | 2025-02-10 08:00 | CRLHL7_ITS ---
For Patients: As a result of the Century Cures Act, medical imaging exams and procedure reports are released immediately into your electronic medical record. You may view this report before your referring provider. If you have questions, please contact your health care provider. INDICATION: Fifth metacarpal bone fracture. TECHNIQUE: Noncontrast CT of the left hand. COMPARISON: Radiographs from 01/29/2025. FINDINGS: There is an acute comminuted fracture of the base of the 5th metacarpal bone demonstrating 3 millimeters of displacement. There is mild subluxation of the 5th CMC articulation. The adjacent 4th metacarpal base is intact. There is no acute hamate bone fracture. Osseous structures are otherwise intact. No significant degenerative change. IMPRESSION: 1. Acute mildly comminuted fracture of the 5th metacarpal base demonstrating 3 mm displacement. 2. Mild subluxation of the 5th CMC articulation. 3. Fourth metacarpal base and hamate bones are intact. Please note that all CT scans at this facility use dose modulation, iterative reconstruction, and/or weight-based dosing when appropriate to reduce radiation dose to as low as reasonably achievable. Dictated by Nickolas Thomson MD @ 02/10/2025 9:42:12 AM (Electronically Signed)
== END 2025-02-10 07:42 | disposition home or self-care (01) ==
LOC: CT 07:43
PROVIDERS: PCP Internal Medicine; Visit Provider Orthopaedic Surgery
DX: S62.317A Displaced fracture of base of fifth metacarpal bone, left hand, initial encounter for closed fracture (principal)
CPT/HCPCS: 73200

== ENCOUNTER 2025-02-17 13:09 | Outpatient (CLI) | payer OTHER, BC, SELFPAY ==
--- NOTE | 2025-02-23 12:44 | W.PM.SLEEP ---
Sleep Study Details Details Interpreting Provider: Mohsen Date of Sleep Study: 02/17/25 Sleep Study Details: STUDY TYPE:? home unattended ? BMI:? 26.26 ORDERING PROVIDER:? Mohsen INDICATION:? concern about sleep apnea ? SLEEP SUMMARY:? 596 minutes monitored RESPIRATORY SUMMARY:? AHI 8.1 per rule 1A, 5.7 per CMS guideline Low oxygen 82 35.6% of study oxygen less than 90% Snoring 87.4% PERIODIC LIMB MOVEMENTS OF SLEEP:? not recorded CARDIAC:? range 59-99, mean 70 beats per minute IMPRESSION:? mild obstructive sleep apnea with significant desaturations for approximately 1/3 of the study. RECOMMENDATION: For the sleep apnea treatment options include CPAP, dental appliance and/or airway expansion surgery. Further cardiopulmonary evaluation may be indicated as her oxygen saturation was below 90 for 35.6% of the study. This is more than would be expected for mild sleep apnea.
== END 2025-02-17 13:10 | disposition home or self-care (01) ==
LOC: SLEEP 13:10
PROVIDERS: PCP Internal Medicine; Visit Provider Otolaryngology
DX: G47.33 Obstructive sleep apnea (adult) (pediatric) (principal)
CPT/HCPCS: 95806